=== PATIENT | male | born 1965 | race American Indian/Alaskan Native ===

== ENCOUNTER 2025-02-11 08:33 | Outpatient (RCR) | payer BC, SELFPAY | END 2025-02-11 23:59 | disposition home or self-care (01) | LOC: RPT 08:33 | PROVIDERS: ATTENDING PHYSICIAN Family Medicine | DX: M54.51 Vertebrogenic low back pain (principal); M54.41 Lumbago with sciatica, right side (principal); G57.01 Lesion of sciatic nerve, right lower limb; Z73.6 Limitation of activities due to disability; R20.0 Anesthesia of skin; R20.2 Paresthesia of skin; R26.89 Other abnormalities of gait and mobility | CPT/HCPCS: 97110; 97140; 97162 ==